=== PATIENT | male | born 1930 | race African-American/Black ===

== ENCOUNTER → 2016-07-18 | Outpatient (CLI) | payer MEDICARE, OTHER ==
--- NOTE | 2016-07-18 13:37 | XCELERA REPORT ---
[address] [address] Transthoracic Echocardiogram Report Name: RENATE HENRY Age: 86 yrs Gender: Male : 1930 Patient Status: Outpatient Patient Location: Study Date: 07/18/2016 11:45 AM Height: 73 in Weight: 147 lb BSA: 1.9 m2 Procedure: A complete two-dimensional transthoracic echocardiogram was performed (2D, M-mode, spectral and color flow Doppler). The study was technically adequate with some images being suboptimal in quality. Reason For Study: EDEMA Ordering Physician: DANAY YOUNGBLOOD PA-C Performed By: Erin Johansen Interpretation Summary The left ventricular ejection fraction is normal. There is moderate concentric left ventricular hypertrophy. The left ventricle is grossly normal size. Doppler measurements suggest pseudonormalized left ventricular relaxation, which is associated with grade II/IV or mild to moderate diastolic dysfunction Wall motion cannot be accurately commented on, but no definite regional wall motion abnormalities noted. Borderline right ventricular enlargement. The right ventricular systolic function is normal. The right atrium is normal in size The left atrial size is normal. There is a trace to mild amount of mitral regurgitation There is no mitral valve stenosis. There is no aortic valve stenosis There is a trace amount of aortic regurgitation There is a trace or physiologic amount of tricuspid regurgitation Tricuspid regurgitation jet envelope not well defined to measure RV systolic pressure accurately. The inferior vena cava appeared normal and decreased < 50% with respiration (RAP 10-15 mmHg) There is no pericardial effusion. MMode/2D Measurements \T\ Calculations RVDd: 2.3 cm LVIDd: 3.7 cmFS: 41.1 % Ao root diam: 3.6 cm IVSd: 1.5 cm LVIDs: 2.2 cmEDV(Teich): 59.1 ml LVPWd: 1.3 cmESV(Teich): 16.1 ml Ao root area: 10.4 cm2 EF(Teich): 72.8 % LA dimension: 2.3 cm LVOT diam: 2.3 cm LVOT area: 4.0 cm2 Doppler Measurements \T\ Calculations MV E max armida: MV P1/2t max armida: Ao V2 max: LV V1 max P.4 cm/sec 59.2 cm/sec 141.2 cm/sec 3.4 mmHg MV A max armida: MV P1/2t: 50.2 msec Ao max PG: LV V1 max: 74.0 cm/sec MVA(P1/2t): 4.4 cm2 8.0 mmHg 92.2 cm/sec MV E/A: 0.79 MV dec slope: DORIS(V,D): 2.6 cm2 345.6 cm/sec2 MV dec time: 0.17 sec PA V2 max: TR max armida: 69.4 cm/sec 237.2 cm/sec PA max PG: TR max P.5 mmHg 1.9 mmHg Left Ventricle The left ventricle is grossly normal size. There is moderate concentric left ventricular hypertrophy. The left ventricular ejection fraction is normal. Doppler measurements suggest pseudonormalized left ventricular relaxation, which is associated with grade II/IV or mild to moderate diastolic dysfunction. Wall motion cannot be accurately commented on, but no definite regional wall motion abnormalities noted. Right Ventricle Borderline right ventricular enlargement. There is normal right ventricular wall thickness. The right ventricular systolic function is normal. Atria The right atrium is normal in size. The left atrial size is normal. Interarterial septum not well visualized and not well dopplered. Cannot comment on ASD/PFO presence. Mitral Valve The mitral valve is grossly normal. There is no mitral valve stenosis. There is a trace to mild amount of mitral regurgitation. Aortic Valve The aortic valve is grossly normal. There is no aortic valve stenosis. There is a trace amount of aortic regurgitation. Tricuspid Valve The tricuspid valve is not well visualized, but is grossly normal. There is no tricuspid stenosis. There is a trace or physiologic amount of tricuspid regurgitation. Tricuspid regurgitation jet envelope not well defined to measure RV systolic pressure accurately. Pulmonic Valve The pulmonic valve is not well visualized. Great Vessels The aortic root is not well visualized but is probably normal size. The inferior vena cava appeared normal and decreased < 50% with respiration (RAP 10-15 mmHg). Effusions There is no pericardial effusion. : DANAY YOUNGBLOOD PA-C > Daren Sterling
== END ==
LOC: SP 11:32
PROVIDERS: ATTEND Physician Assistant
DX: R60.9 Edema, unspecified (principal)
CPT/HCPCS: 93306

== ENCOUNTER → 2016-07-26 | Outpatient (CLI) | payer MEDICARE, OTHER | LOC: SP 10:28 | PROVIDERS: ATTEND Physician Assistant | DX: R60.9 Edema, unspecified (principal) | CPT/HCPCS: 93970 ==

== ENCOUNTER → 2016-09-13 | Outpatient (CLI) | payer MEDICARE, OTHER ==
--- NOTE | 2016-09-15 07:46 | XCELERA REPORT ---
[address] [address] Lower Extremity Arterial Evaluation Name: RENATE HENRY Age: 86 yrs Gender: Male : 1930 Patient Status: Outpatient Patient Location: Study Date: 09/13/2016 03:47 PM Procedure: A color flow and duplex scan of the lower extremity arteries was performed bilaterally with velocity and waveform anaylsis. Ankle brachial indicies performed. Reason For Study: PVD Ordering Physician: JARRED RENE Performed By: Dian Guo Measurements and Calculations Right Left [employer]ATOR PSV 131.2 112.5 cm/sec Prox PFA PSV 75.6 79.0 cm/sec Prox SFA PSV 90.8 83.4 cm/sec Mid SFA PSV -119.4 -145.3 cm/sec Dist SFA PSV -96.2 -116.6 cm/sec Prox Pop A PSV 79.0 73.8 cm/sec Dist YOSELIN PSV 39.5 43.2 cm/sec Dist AIRPLANE PILOT PSV 30.4 152.4 cm/sec Harshil Pedis PSV 74.2 32.8 cm/sec Right Side Arterial Evaluation Normal velocity, waveform and triphasic flow are present, from the Common Femoral artery to the Femoral artery. 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 Monophasic in the infrageniculate vessels. The ankle-brachial index is 1.13. 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 With sequential charges. Well sustained velocities distally, in spite of disease. Left Side Arterial Evaluation Normal velocity, waveform and triphasic flow are present, from the Common Femoral artery to the Popliteal artery. Biphasic in the infrageniculate vessels. The ankle-brachial index is not obtainable, non compressible. 20-49 % stenosis is noted at the infrageniculate vessels. Interpretation Summary Severe hemodynamically significant lesions in the right lower extremity only, on duplex imaging, at rest. Moderate hemodynamically significant lesions in the left lower extremity only, on duplex imaging, at rest. : JARRED RENE > Gene Durand
== END ==
LOC: SP 15:21
PROVIDERS: ATTEND Physician Assistant
DX: I70.208 Unspecified atherosclerosis of native arteries of extremities, other extremity (principal)
CPT/HCPCS: 93925

== ENCOUNTER 2016-09-22 11:13 | Day surgery (SDC) | payer MEDICARE, OTHER ==
[2016-09-22] MEDS ORDERED: PROMETHAZINE HCL INJ 25 MG/1 ML VIAL ONE (11:24)
[2016-09-22] MEDS ORDERED: NALOXONE HCL INJ/PF 0.4 MG/1 ML SDV ONE (11:24)
[2016-09-22] MEDS ORDERED: DIPHENHYDRAMINE HCL 50 MG/ML VIAL ONE (11:24)
[2016-09-22] MEDS ORDERED: ONDANSETRON HCL INJ/PF 4 MG/2 ML SDV ONE (11:24)
[2016-09-22] MEDS ORDERED: EPINEPHRINE INJ 1 MG/10 ML DISP.SYRIN ONE (11:25)
[2016-09-22] MEDS ORDERED: GLUCAGON,HUMAN RECOMB 1 MG INJ ONE (11:25)
[2016-09-22] MEDS ORDERED: FENTANYL CITRATE INJ/PF 100 MCG/2 ML AMPUL ONE (11:25)
[2016-09-22] MEDS ORDERED: FLUMAZENIL INJ 0.5 MG/5 ML VIAL IV ONE (11:25)
[2016-09-22] MEDS: MIDAZOLAM 2 MG/2 ML INJ ONE ×2 (12:29→12:37)
--- NOTE | 2016-09-22 13:44 | Operative Report ---
Operative Report DATE OF SURGERY: 09/22/16 Operative Report: The risks, benefits and alternatives of the procedure including risks of bleeding, perforation requiring surgery I expended the patient detail and informed consent is obtained. Patient is placed in a left lateral decubital position. Timeout is called. Conscious sedation medications are provided. A rectal examination was done which did not reveal any masses, tears or fissures. An Olympus videoscope was inserted patient's rectum. Is carefully advanced all the way to the cecum. Patient has a redundant colon. The cecum was ultimately reached. It is identified by the usual anatomical landmarks of the ileocecal valve as well as the appendiceal office. Photodocumentation was obtained. Prep is good. Scope was then sequentially pulled back via the various segments of the colon including the ascending colon, hepatic flexure, transverse colon, splenic flexure, descending colon and finally into the rectosigmoid portions of the colon. Retroflexion maneuvers performed. PREOPERATIVE DIAGNOSIS: Anemia rule out GI blood loss POSTOPERATIVE DIAGNOSIS: Polyp in the hepatic flexure that is removed via snare polypectomy and retrieved. Diverticulosis in the sigmoid region not associated with any diverticulitis peridiverticular hypertrophy. Internal hemorrhoids OPERATION: Colonoscopy with snare polypectomy SURGEON: GABRIELLE MATHEW ANESTHESIA: Moderate Sedation - 3 mg of Versed, 25 g of fentanyl. Conscious sedation monitoring time 30 minutes. TISSUE REMOVED OR ALTERED: Colon polyp retrieved. COMPLICATIONS: None. ESTIMATED BLOOD LOSS: none. INTRAOPERATIVE FINDINGS: Described above. No AVMs, obstructive masses noted. PROCEDURE: Patient tolerated the procedure well. No immediate postprocedure complications are noted. Patient is discharged in good condition. Discharge date 09/22/2016. Discharge diet: Regular. Discharge activity: Regular. He is due for a surveillance colonoscopy in 5 years however at that point he'll be 89; will determine clinical status at that point but he is not likely to need further surveillance at this point. Patient is instructed to call the office or proceed to the emergency room after any further problems or questions We'll await on biopsies he does have a 2-3 week follow-up to discuss findings
[2016-09-22 13:57] VITALS: BP 147/70
== END 2016-09-22 14:00 | disposition home or self-care (01) ==
LOC: END 11:13
PROVIDERS: ATTEND Internal Medicine Gastroenterology
PROC: 0DBE8ZX Excision of Large Intestine, Via Natural or Artificial Opening Endoscopic, Diagnostic (ICD-10-PCS; principal; 2016-09-22 12:00)
DX: K57.30 Diverticulosis of large intestine without perforation or abscess without bleeding (principal); K63.5 Polyp of colon; K64.8 Other hemorrhoids; D64.9 Anemia, unspecified; I10 Essential (primary) hypertension; K21.9 Gastro-esophageal reflux disease without esophagitis; N40.0 Benign prostatic hyperplasia without lower urinary tract symptoms; Z87.891 Personal history of nicotine dependence; Z79.899 Other long term (current) drug therapy
CPT/HCPCS: 45385; 88305 ×2; J2250; J3010; J0171; J1200; J1610; J2310; J2405; J2550; J3490

== ENCOUNTER → 2016-11-02 | Outpatient (CLI) | payer MEDICARE | LOC: RAD 10:51 | PROVIDERS: ATTEND Family Medicine | DX: J20.9 Acute bronchitis, unspecified (principal); J44.9 Chronic obstructive pulmonary disease, unspecified; R05 Cough | CPT/HCPCS: 71020 ==